=== PATIENT | male | born 1970 | race Caucasian/White ===

== ENCOUNTER 2021-01-02 18:13 | Emergency (ER) | payer BC, SELFPAY ==
[2021-01-02 18:17] VITALS: BP 140/75; PULSE 98; RESP 16; TEMP 36.4; O2SAT 100
--- NOTE | 2021-01-02 20:46 | ED.GENADULT ---
HPI - General Adult General Chief complaint: Wound/Laceration Stated complaint: LACERATION FINGER Time Seen by Provider: 01/02/21 18:44 Source: patient Mode of arrival: ambulatory Limitations: no limitations History of Present Illness HPI narrative: Patient is a 50-year-old male with chief complaint of laceration to his right pointer finger that he sustained when a piece of ceramic. He reports that he presented to an urgent care who directed him to the emergency department. Patient reports the area was bleeding but has since slowed since applying pressure dressing. He denies known foreign body. He reports he still has full range of motion of the finger. He denies any other injuries. Patient reports that he is up-to-date on tetanus. Related Data Home Medications Medication Instructions Recorded Confirmed No Home Medications 01/02/21 01/02/21 Allergies Allergy/AdvReac Type Severity Reaction Status Date / Time No Known Allergies Allergy Verified 01/02/21 18:46 Review of Systems Review of Systems: CONSTITUTIONAL: Denies fever, chills, or sweats. EYES: Denies visual changes, redness, or discharge. ENT: Denies rhinorrhea, congestion, sore throat, or otalgia. CARDIOVASCULAR: Denies chest pain, palpitations, or edema. RESPIRATORY: Denies cough or dyspnea. GASTROINTESTINAL: Denies abdominal pain, nausea, vomiting, or diarrhea. GENITOURINARY: Denies dysuria or hematuria. SKIN: Reports laceration denies rash or itching. MUSCULOSKELETAL: Denies back pain, joint pain, or myalgia. NEUROLOGIC: Denies headache, numbness, dizziness, or weakness. PSYCHIATRIC: Denies anxiety or depression. Exam Narrative: GENERAL: Well-appearing, well-nourished, and in no acute distress. HEAD: Normocephalic, atraumatic. EYES: PERRLA and EOMI. CHEST: Clear to auscultation. No respiratory distress. No wheezes rales or rhonchi HEART: Regular rate and rhythm. No murmur heard. Normal peripheral pulses. EXTREMITIES: Normal range of motion. No edema. SKIN: approx 4.5 cm laceration to right pointer finger. Some bleeding. ROM, cap refill, and sensation intact. Warm, dry, no rash. NEURO: No focal deficits. Alert and oriented x3. PSYCH: Normal mood and affect. Course Vital Signs Vital signs: Vital Signs Temperature 97.6 F 01/02/21 18:17 Pulse Rate 98 01/02/21 18:17 Respiratory Rate 16 01/02/21 18:17 Blood Pressure 140/75 01/02/21 18:17 Pulse Oximetry 100 01/02/21 18:17 Temperature 97.6 F 01/02/21 18:17 Pulse Rate 98 01/02/21 18:17 Respiratory Rate 16 01/02/21 18:17 Blood Pressure 140/75 01/02/21 18:17 Pulse Oximetry 100 01/02/21 18:17 Procedures Laceration Laceration 1: Site: hand Side (If applicable): right Size (cm): 4.5 Description: linear and flap Depth: simple, single layer Local Anesthetic: lidocaine 1% Amount of anesthesia used (mL): 0.5 Pre-repair: irrigated extensively ====== Skin Level ====== Skin layer closed with: prolene Size (cm): 5-0 Number of sutures: 5 Technique: simple, interrupted ====== Subcutaneous Layer ====== ====== Muscle Layer ====== ====== Tendon Layer ====== Dressing: Patient tolerated procedure well. Neosporin nonstick Telfa and bandage applied. Medical Decision Making MDM Narrative Medical decision making narrative: Laceration repair went well. Wound well approximated. Bleeding is stopped. Dressing applied. Wound care instructions given. Follow-up and return to ER instructions discussed. Vital Signs Vital Signs: Vital Signs Temperature 97.6 F 01/02/21 18:17 Pulse Rate 98 01/02/21 18:17 Respiratory Rate 16 01/02/21 18:17 Blood Pressure 140/75 01/02/21 18:17 Pulse Oximetry 100 01/02/21 18:17 Temperature 97.6 F 01/02/21 18:17 Pulse Rate 98 01/02/21 18:17 Respiratory Rate 16 01/02/21 18:17 Blood Pressure 140/75 01/02/21 18:17
== END 2021-01-02 21:06 | disposition home or self-care (01) ==
PROVIDERS: Emergency Provider Emergency Medicine; PCP Internal Medicine
DX: S61.210A Laceration without foreign body of right index finger without damage to nail, initial encounter (principal); W26.8XXA Contact with other sharp object(s), not elsewhere classified, initial encounter
CPT/HCPCS: 12002; 99282